=== PATIENT | male | born 1965 | race Caucasian/White ===

== ENCOUNTER 2018-01-27 13:20 | Emergency (ER) | payer OTHER, SELFPAY ==
[2018-01-27 13:21] VITALS: BP 166/113; PULSE 75; RESP 18; TEMP 37.1; O2SAT 99; BMI 28.0
[2018-01-27 13:31] VITALS: PULSE 84; RESP 15; O2SAT 99
--- NOTE | 2018-01-27 14:01 | ED.VISSUMM ---
- ER Visit Summary Date of Service: 01/27/18 Chief Complaint: Opiate abuse History of Present Illness: The patient is a 52 M presenting wanting help for opiate addiction. He states he takes between 50-100 mg Percocet or Vicodin per day. His last use was 2 days ago. He complains of nausea and diarrhea. He states he drinks 6 beers per day. He denies other drug use. He states he has a child and is unable to stay in the hospital. He was unsure how detox worked. Physical Examination: Vitals are stable. Patient is afebrile. Alert no acute distress. HEENT exam is unremarkable. Neck is supple. Lungs are clear and equal bilaterally. Heart is regular rate and rhythm. Abdomen is soft nontender nondistended. No guarding or rebound. Extremities are unremarkable. Skin is warm and dry. No focal neurologic deficit. Remainder of exam is unremarkable. Emergency Department Course and Treatment: [facility] was called and came to speak to the patient. He will follow-up as an outpatient. He is given a prescription for Zofran. He is advised to return to ED worsening complaints. Disposition: Discharge home Impression: Opiate addiction This note was generated with [employer] dictation software. It may contain incorrect words, spelling, and punctuation that were not noted in review of the chart prior to signing ED Disposition - Plan for ED Patient: Chief Complaint: Substance Abuse Instructions: ED Withdrawal Narcotic Prescriptions: Ondansetron [Zofran Odt] 4 mg PO Q8H PRN PRN #10 tablet PRN Reason: Nausea Referrals: Kan Rosenthal [Primary Care Provider] -
[2018-01-27 14:07] VITALS: PULSE 82; RESP 14; O2SAT 98
== END 2018-01-27 14:11 | disposition home or self-care (01) ==
PROVIDERS: Emergency Provider Emergency Medicine; Family Provider Family Medicine; PCP Family Medicine
DX: F11.20 Opioid dependence, uncomplicated (principal); R11.0 Nausea; R19.7 Diarrhea, unspecified; F10.99 Alcohol use, unspecified with unspecified alcohol-induced disorder; Z79.899 Other long term (current) drug therapy
CPT/HCPCS: 99282

== ENCOUNTER → 2018-07-16 16:06 | Outpatient (CLI) | payer OTHER, SELFPAY ==
[2018-07-16 17:24] LABS: Amphetamine Urine VISTA NEGATIVE (<1000 ng/mL); Barbiturate Urine VISTA NEGATIVE (< 200 ng/mL); Benzodiazepine Urine VISTA NEGATIVE (< 200 ng/mL); Cocaine Urine VISTA NEGATIVE (< 300 ng/mL); Ecstacy Urine VISTA NEGATIVE (< 500 ng/mL); Methadone Urine VISTA NEGATIVE (< 300 ng/mL); PCP Urine VISTA NEGATIVE (< 25 ng/mL); THC Urine VISTA NEGATIVE (< 50 ng/mL); Vista UDS pH Range 6
== END ==
PROVIDERS: Family Provider Family Medicine; PCP Family Medicine; Referring Provider Anesthesiology Pain Medicine; Visit Provider Anesthesiology Pain Medicine
DX: F11.20 Opioid dependence, uncomplicated (principal)
CPT/HCPCS: 80307